=== PATIENT | male | born 1970 | race Hispanic/Latino ===

== ENCOUNTER 2018-02-07 14:39 | Emergency (ER) | payer BC ==
[~2018-02-07] VITALS: Ht 177.8 cm; Wt 86.2 kg
[2018-02-07] MEDS ORDERED: METHYLPREDNISOLONE SOD SUCC 125 MG/2ML VIAL IM ONE (15:00)
[2018-02-07] MEDS ORDERED: LOPRESSOR25 MG PO (15:08)
[2018-02-07] MEDS ORDERED: LISINOPRIL10 MG PO (15:08)
[2018-02-07 15:18] VITALS: BP 130/70
== END 2018-02-07 15:20 | disposition home or self-care (01) ==
LOC: FSED 14:39
DX: L25.5 Unspecified contact dermatitis due to plants, except food (principal); F17.210 Nicotine dependence, cigarettes, uncomplicated
CPT/HCPCS: 96372; 99282; J2930